=== PATIENT | female | born 1965 | race Caucasian/White ===

== ENCOUNTER 2016-07-07 17:05 | Inpatient (IN) | payer OTHER ==
[~2016-07-07] VITALS: Ht 157.5 cm; Wt 60.4 kg
[~2016-07-07 17:05] MED LIST: ALBU0.08 NEB; IBUP800T23 PO; PERI0.126 SWISH-SPIT; VENTAER INH; ZYRTTAB2 PO
[2016-07-07 17:14] VITALS: BP 130/75; PULSE 104; RESP 16; TEMP 98.2; O2SAT 100
[2016-07-07] MEDS ORDERED: SODIUM CHLORIDE 0.9% FLUSH 10 ML FLUSH IVF PRN (18:00)
[2016-07-07 18:30] LABS: AUTOMATED NEUTROPHIL # 3.7 TH/MM3 (1.8-7.7); BASOPHIL # 0.1 TH/MM3 (0-0.2); BASOPHIL % 1.6 % (0.0-2.0); EOSINOPHIL # 0.7 TH/MM3 (0-0.4); HEMATOCRIT 22.5 % (35.0-46.0); LYMPH % 18.7 % (9.0-44.0); LYMPHOCYTE # 1.1 TH/MM3 (1.0-4.8); MEAN CELL VOLUME 64.4 FL (80.0-100.0); MEAN CORPUSCULAR HEMOGLOBIN 19.9 PG (27.0-34.0); MEAN CORPUSCULAR HGB CONC 30.9 % (32.0-36.0); MONO % 5.9 % (0.0-8.0); NEUT % 61.8 % (16.0-70.0); PLATELET COUNT 254 TH/MM3 (150-450); RED BLOOD COUNT 3.49 MIL/MM3 (4.00-5.30); RED CELL DISTRIBUTION WIDTH 19.4 % (11.6-17.2)
[2016-07-07 18:39] LABS: HEMO FLAGS AUTO DIFF
[2016-07-07 18:40] LABS: POTASSIUM 3.7 MEQ/L (3.5-5.1)
[2016-07-07 18:43] LABS: BICARBONATE 25.5 MEQ/L (21.0-32.0)
[2016-07-07] MEDS ORDERED: SODIUM CHLOR 0.9% 250 ML INJ 250 ML IV ONE (18:45)
--- NOTE | 2016-07-07 18:50 | PD ---
HPI Chief Complaint: General Weakness Time Seen by Provider: 17:47 Travel History International Travel<30 days: No Contact w/Intl Traveler<30days: No Traveled to known affect area: No History of Present Illness HPI Patient's 50 years old. She reports generalized fatigue and weakness. She denies headache and palpitations. She reports nail splitting. The patient reports a history of anemia and has a uterine fibroid. Due to lack of insurance she reports she has been unable to establish follow-up in gynecology and/or primary care. She reports her menstruation just ended. It was heavier than normal. Mild palpation or "bumping" of the abdominal wall tends to cause pain. PFSH Past Medical History Anemia: Yes Arthritis: No Asthma: Yes Autoimmune Disease: No Anxiety: No Depression: No Cancer: No Cardiovascular Problems: No Chemotherapy: No COPD: No Cerebrovascular Accident: No Diminished Hearing: Yes (BILAT HEARING AIDS) Endocrine: No Gastrointestinal Disorders: No Genitourinary: No Headaches: No Immune Disorder: No Implanted Vascular Access Dvce: No Musculoskeletal: Yes ("THIGH/FEMUR AREA ACHES IF I'M SICK") Neurologic: No Psychiatric: No Reproductive: No Respiratory: Yes (ASTHMA) Immunizations Current: Yes Migraines: No Pneumonia: Yes Radiation Therapy: No Seizures: No Shingles: Yes Sleep Apnea: No Tetanus Vaccination: Unknown Influenza Vaccination: Yes ?: Not LMP: 2 DAYS AGO Menopausal: Yes : 0 Para: 0 Miscarriage: 0 : 0 Past Surgical History Abdominal Surgery: No AICD: No Arteriovenous Shunt: No Body Medical Devices: pt states her pins were removed from her femur Cardiac Surgery: No Ear Surgery: No Endocrine Surgery: No Eye Surgery: No Genitourinary Surgery: No Gynecologic Surgery: No Insulin Pump: No Joint Replacement: No Neurologic Surgery: No Oral Surgery: No Pacemaker: No Thoracic Surgery: No Other Surgery: Yes Social History Alcohol Use: Yes (RARELY) Tobacco Use: No Substance Use: No Allergies-Medications (Allergen,Severity, Reaction): Coded Allergies: No Known Allergies (Verified , 07/07/16) Reported Meds & Prescriptions Reported Meds & Active Scripts Active Albuterol Neb (Albuterol Sulfate) 2.5 Mg/3 Ml Neb 2.5 Mg NEB Q4HR NEB PRN Ventolin Hfa 18 GM Inh (Albuterol Sulfate) 90 Mcg/Act Aer 2 Puff INH Q4-6H PRN Reported Zyrtec-D Allergy/Congestion 12 HR (Cetirizine-Pseudoephedrine 12 HR) 5-120 Mg Tab 1 Tab PO DAILY Review of Systems Except as stated in HPI: all other systems reviewed are Neg Physical Exam Narrative GENERAL: 50-year-old female pleasant no acute distress SKIN: Focused skin assessment warm/dry. HEAD: Atraumatic. Normocephalic. EYES: Pupils equal and round. No scleral icterus. No injection or drainage. ENT: No nasal bleeding or discharge. Mucous membranes pink and moist. NECK: Trachea midline. No JVD. CARDIOVASCULAR: Regular rate and rhythm. No murmur appreciated. RESPIRATORY: No accessory muscle use. Clear to auscultation. Breath sounds equal bilaterally. GASTROINTESTINAL: Soft. There is a pelvic mass somewhat firm minimally tender. Patient states this is her fibroid. MUSCULOSKELETAL: No obvious deformities. No clubbing. No cyanosis. No edema. NEUROLOGICAL: Awake and alert. No obvious cranial nerve deficits. Motor grossly within normal limits. Normal speech. PSYCHIATRIC: Appropriate mood and affect; insight and judgment normal. Data Data Last Documented VS Vital Signs Date Time Temp Pulse Resp B/P Pulse Ox O2 Delivery O2 Flow Rate FiO2 07/07/16 17:14 98.2 104 16 130/75 100 Vital signs reviewed Orders Basic Metabolic Panel (Bmp) (07/07/16 17:55) Complete Blood Count With Diff (07/07/16 17:55) Type And Screen (07/07/16 17:55) Iv Access Insert/Monitor (07/07/16 17:55) Sodium Chloride 0.9% Flush (Ns Flush) (07/07/16 18:00) Blood Product Administration .UPON TRANSFUSION (07/07/16 18:45) Sodium Chlor 0.9% 250 Ml Inj (Ns 250 Ml (07/07/16 18:45) Red Blood Cells (Rbc) (07/07/16 18:45) Admit Order (Ed Use Only) (07/07/16 18:54) Labs Laboratory Tests Test 07/07/16 18:20 White Blood Count 6.0 TH/MM3 Red Blood Count 3.49 MIL/MM3 Hemoglobin 7.0 GM/DL Hematocrit 22.5 % Mean Corpuscular Volume 64.4 FL Mean Corpuscular Hemoglobin 19.9 PG Mean Corpuscular Hemoglobin 30.9 % Concent Red Cell Distribution Width 19.4 % Platelet Count 254 TH/MM3 Mean Platelet Volume 7.7 FL Neutrophils (%) (Auto) 61.8 % Lymphocytes (%) (Auto) 18.7 % Monocytes (%) (Auto) 5.9 % Eosinophils (%) (Auto) 12.0 % Basophils (%) (Auto) 1.6 % Neutrophils # (Auto) 3.7 TH/MM3 Lymphocytes # (Auto) 1.1 TH/MM3 Monocytes # (Auto) 0.4 TH/MM3 Eosinophils # (Auto) 0.7 TH/MM3 Basophils # (Auto) 0.1 TH/MM3 CBC Comment AUTO DIFF Differential Comment AUTO DIFF CONFIRMED Platelet Estimate NORMAL Platelet Morphology Comment NORMAL Tear Drop Cells 1+ Ovalocytes 1+ Sodium Level 142 MEQ/L Potassium Level 3.7 MEQ/L Chloride Level 106 MEQ/L Carbon Dioxide Level 25.5 MEQ/L Anion Gap 11 MEQ/L Blood Urea Nitrogen 13 MG/DL Creatinine 0.71 MG/DL Estimat Glomerular Filtration 87 ML/MIN Rate Random Glucose 96 MG/DL Calcium Level 8.3 MG/DL [facility] Medical Decision Making Medical Screen Exam Complete: Yes Emergency Medical Condition: Yes Medical Record Reviewed: Yes Differential Diagnosis Acute anemia, electrolyte imbalance, uterine fibroid Narrative Course 12 x 11 x 8 cm uterine fibroid is present. The patient's hemoglobin is 7. She is symptomatic. She'll be admitted for packed red cell transfusion. Case discussed with Dr. Carty. Diagnosis Primary Impression: Anemia Qualified Code: D64.9 - Anemia, unspecified type Additional Impression: Uterine fibroid Qualified Code: D25.9 - Uterine leiomyoma, unspecified location Admitting Information Admitting Physician Requests: Observation Jose Tatum MD Jul 07, 2016 18:50
[2016-07-07 18:59] LABS: OVALOCYTES 1+ (NORMAL)
[2016-07-07 19:00] LABS: PLATELET ESTIMATE SMEAR NORMAL (NORMAL); PLATELET MORPHOLOGY NORMAL (NORMAL); SCAN/DIFF AUTO DIFF CONFIRMED; TEARDROP RBCS 1+ (NORMAL)
[2016-07-07] MEDS ORDERED: NALOXONE HCL 0.4 MG/ML AMP IV PRN (19:00)
[2016-07-07] MEDS ORDERED: BISACODYL 10 MG SUPP RECTAL PRN (19:00)
[2016-07-07] MEDS ORDERED: SODIUM CHLORIDE 0.9% FLUSH 10 ML FLUSH IV FLUSH PRN (19:00)
[2016-07-07] MEDS: SODIUM CHLORIDE 0.9% FLUSH 10 ML FLUSH IV FLUSH SCH (21:00)
[2016-07-07] MEDS ORDERED: ALUMINUM/MAGNESIUM/SIMETH 30 ML CUP PO PRN (21:15)
[2016-07-07] MEDS ORDERED: RESP: ALBUTEROL 2.5 MG/3 ML NEB (PRN) NEB (21:15)
[2016-07-07] MEDS ORDERED: DOCUSATE SODIUM 100 MG CAP PO PRN (21:15)
[2016-07-07] MEDS ORDERED: ACETAMINOPHEN 325 MG TAB PO PRN (21:15)
[2016-07-07] MEDS ORDERED: CALCIUM CARBONATE 500 MG CHEWABLE TAB CHEW PRN (21:15)
[2016-07-07] MEDS ORDERED: ONDANSETRON HCL 4 MG/2 ML VIAL IV PRN (21:15)
[2016-07-07] MEDS ORDERED: MAGNESIUM HYDROXIDE SUSP 30 ML CUP PO PRN (21:15)
[2016-07-07 21:57] VITALS: BP 100/67; PULSE 92; RESP 20; TEMP 98.3; O2SAT 97
[2016-07-07 22:05] VITALS: BP 117/62; PULSE 90; RESP 20; TEMP 98.5; O2SAT 99
[2016-07-07] MEDS: SODIUM CHLOR 0.9% 1000 ML INJ 1,000 ML IV SCH (22:13)
[2016-07-07 22:20] VITALS: BP 111/75; PULSE 88; RESP 20; O2SAT 98
[2016-07-07 22:35] VITALS: BP 114/69; PULSE 76; RESP 20; TEMP 98; O2SAT 98
[2016-07-07 23:50] VITALS: BP 115/69; PULSE 72; RESP 20; O2SAT 98
[2016-07-08] VITALS (11 sets, daily range): BP systolic 97–121; BP diastolic 56–80; PULSE 75–86; RESP 20; TEMP 97–98.3; O2SAT 96–98
[2016-07-08 06:21] LABS: POTASSIUM 3.3 MEQ/L (3.5-5.1)
[2016-07-08 06:41] LABS: BICARBONATE 22.2 MEQ/L (21.0-32.0)
[2016-07-08 07:09] LABS: CALCIUM-PROTEIN CORRECTED 7.8 MG/DL (8.5-10.1)
[2016-07-08] MEDS ORDERED: POTASSIUM CHLORIDE 20 MEQ CONTROLLED RELEASE TAB PO ONE (07:15)
[2016-07-08] MEDS: SODIUM CHLOR 0.9% 1000 ML INJ 1,000 ML IV SCH (09:00)
[2016-07-08] MEDS: SODIUM CHLORIDE 0.9% FLUSH 10 ML FLUSH IV FLUSH SCH (09:00)
[2016-07-08] MEDS ORDERED: FERR325T PO (09:29)
[2016-07-08] MEDS ORDERED: PERI8.6T PO (09:29)
--- NOTE | 2016-07-08 09:29 | HHI.DCPOC ---
Discharge Care Plan Diagnosis: (1) Uterine fibroid (2) Anemia Your Health Problems Are: Difficulty with ADL Exercise Tolerance Goals to Promote Your Health * To prevent worsening of your condition and complications * To maintain your health at the optimal level Directions to Meet Your Goals Take your medications as prescribed Follow your dietary instruction Follow activity as directed Keep your appointments as scheduled Take your immunizations and boosters as scheduled If your symptoms worsen call your PCP, if no PCP go to Urgent Care Center or Emergency Room Smoking is Dangerous to Your Health. Avoid second hand smoke Call the 24-hour hour crisis hotline for domestic abuse at Roberto Mora MD Jul 08, 2016 09:29
--- NOTE | 2016-07-08 09:38 | HHI.HP ---
[facility] Angely Walker MD Admission Diagnosis Acute Anemia Diagnoses: Chief Complaint: Fatigue and weakness Travel History International Travel<30 Days: No Contact w/Intl Traveler <30 Da: No Traveled to Known Affected Are: No History of Present Illness This is a 50 years old female who presented to the emergency room complaining of generalized fatigue and weakness. She denies fever, headache, chest pain, shortness of breath, dizziness and palpitations. She reports a history of anemia and has a uterine fibroid. EMR review shows she has iron deficiency anemia. Patient takes 5 multivitamins that contain iron. Her PCP has already referred her to gynecology. She reports her menstruation just ended. It was heavier than normal. She received 2 units of packed RBC overnight and hemoglobin improved to 9.2. She feels much better without any complaints at this time. Review of Systems Constitutional: COMPLAINS OF: Fatigue, DENIES: Diaphoretic episodes, Fever, Weight gain, Weight loss, Chills, Dizziness, Change in appetite, Night Sweats Endocrine: DENIES: Heat/cold intolerance, Polydipsia, Polyuria, Polyphagia Eyes: DENIES: Blurred vision, Diplopia, Vision loss, Photosensitivity Ears, nose, mouth, throat: DENIES: Tinnitus, Vertigo, Throat pain, Hoarseness, Epistaxis, Odynophagia Respiratory: DENIES: Cough, Wheezing, Hemoptysis, Sputum production, Shortness of breath Cardiovascular: DENIES: Chest pain, Palpitations, Syncope, Dyspnea on Exertion , PND, Lower Extremity Edema, Orthopnea, Claudication Gastrointestinal: DENIES: Abdominal pain, Black stools, Bloody stools, Constipation, Diarrhea, Nausea, Vomiting, Difficulty Swallowing, Anorexia Genitourinary: DENIES: Urinary frequency, Urinary incontinence, Urgency, Hematuria, Dysuria, Nocturia, Vaginal discharge Integumentary: DENIES: Rash Neurologic: DENIES: Headache, Localized weakness, Seizures, Tremor, Poor Balance Psychiatric: DENIES: Anxiety, Confusion, Depression, Hallucinations, Agitation , Suicidal Ideation, Homicidal Ideation, Delusions Past Family Social History Past Medical History As previously mentioned. LMP a week ago. History of asthma and hard of hearing. Past Surgical History Orthopedic surgery Reported Medications Albuterol Neb (Albuterol Sulfate) 2.5 Mg/3 Ml Neb 2.5 Mg NEB Q4HR NEB PRN Ventolin Hfa 18 GM Inh (Albuterol Sulfate) 90 Mcg/Act Aer 2 Puff INH Q4-6H PRN Zyrtec-D Allergy/Congestion 12 HR (Cetirizine-Pseudoephedrine 12 HR) 5-120 Mg Tab 1 Tab PO DAILY Allergies: Coded Allergies: No Known Allergies (Verified , 07/07/16) Family History PR Social History Occasional alcohol use. She does not smoke or use illicit drugs. She is employed Physical Exam Vital Signs Vital Signs Date Time Temp Pulse Resp B/P Pulse Ox O2 Delivery O2 Flow Rate FiO2 07/08/16 08:30 97.0 83 20 121/80 96 07/08/16 07:11 97.7 07/08/16 07:06 79 16 96 Room Air 07/08/16 06:47 78 20 111/67 98 07/08/16 05:37 80 20 110/70 97 07/08/16 03:48 75 20 111/67 98 07/08/16 03:27 85 20 97/56 98 07/08/16 01:45 98.0 84 20 118/71 98 07/08/16 01:30 80 20 97/64 98 Room Air 07/08/16 01:15 98.3 80 20 106/66 96 07/08/16 01:00 84 20 112/79 96 07/08/16 00:39 86 20 118/73 97 07/07/16 23:50 72 20 115/69 98 07/07/16 23:43 20 98 07/07/16 22:35 98.0 76 20 114/69 98 Room Air 07/07/16 22:20 88 20 111/75 98 07/07/16 22:05 98.5 90 20 117/62 99 07/07/16 21:57 98.3 92 20 100/67 97 07/07/16 17:14 98.2 104 16 130/75 100 Physical Exam GENERAL: This is a well-nourished, well-developed patient, in no apparent distress. SKIN: No rashes, ecchymoses or lesions. Cool and dry. HEAD: Atraumatic. Normocephalic. No temporal or scalp tenderness. EYES: Pupils equal round and reactive. Extraocular motions intact. No scleral icterus. No injection or drainage. ENT: Nose without bleeding, purulent drainage or septal hematoma. Throat without erythema, tonsillar hypertrophy or exudate. Uvula midline. Airway patent. NECK: Trachea midline. No JVD or lymphadenopathy. Supple, nontender, no meningeal signs. CARDIOVASCULAR: Regular rate and rhythm without murmurs, gallops, or rubs. RESPIRATORY: Clear to auscultation. Breath sounds equal bilaterally. No wheezes , rales, or rhonchi. GASTROINTESTINAL: Abdomen soft, non-tender, nondistended. Prominent uterus. No guarding. MUSCULOSKELETAL: Extremities without clubbing, cyanosis, or edema. No joint tenderness, effusion, or edema noted. No calf tenderness. Negative Homans sign bilaterally. NEUROLOGICAL: Awake and alert. Cranial nerves II through XII intact. Motor and sensory grossly within normal limits. Five out of 5 muscle strength in all muscle groups. Normal speech. Laboratory Laboratory Tests Test 07/07/16 07/07/16 07/08/16 07/08/16 18:20 19:25 04:20 05:50 White Blood Count 6.0 Red Blood Count 3.49 Hemoglobin 7.0 7.7 9.2 Hematocrit 22.5 Mean Corpuscular Volume 64.4 Mean Corpuscular Hemoglobin 19.9 Mean Corpuscular Hemoglobin 30.9 Concent Red Cell Distribution Width 19.4 Platelet Count 254 Mean Platelet Volume 7.7 Neutrophils (%) (Auto) 61.8 Lymphocytes (%) (Auto) 18.7 Monocytes (%) (Auto) 5.9 Eosinophils (%) (Auto) 12.0 Basophils (%) (Auto) 1.6 Neutrophils # (Auto) 3.7 Lymphocytes # (Auto) 1.1 Monocytes # (Auto) 0.4 Eosinophils # (Auto) 0.7 Basophils # (Auto) 0.1 CBC Comment AUTO DIFF Differential Comment AUTO DIFF CONFIRMED Platelet Estimate NORMAL Platelet Morphology Comment NORMAL Tear Drop Cells 1+ Ovalocytes 1+ Sodium Level 142 142 Potassium Level 3.7 3.3 Chloride Level 106 110 Carbon Dioxide Level 25.5 22.2 Anion Gap 11 10 Blood Urea Nitrogen 13 11 Creatinine 0.71 0.57 Estimat Glomerular Filtration 87 112 Rate Random Glucose 96 74 Calcium Level 8.3 7.4 Blood Type O POSITIVE Antibody Screen NEGATIVE Crossmatch Leukocyte-Reduced Red Blood Cells Blood Bank Comment Protein Corrected Calcium 7.8 Total Protein 6.3 Result Diagram: 07/08/16 0420 07/08/16 0550 Assessment and Plan Problem List: (1) Anemia ICD Code: D64.9 Status: Acute (2) Uterine fibroid ICD Code: D25.9 Status: Chronic Assessment and Plan This is a 50 years old female who presented to the emergency room complaining of generalized fatigue and weakness with a hemoglobin of 7. She reports a history of anemia and has a uterine fibroid. Her PCP has already referred her to gynecology. She reports her menstruation just ended. It was heavier than normal. She received 2 units of packed RBC overnight and hemoglobin improved to 9.2. She feels much better without any complaints at this time. Symptomatic microcytic anemia hx CIERRA likely from uterine fibroids. Follow-up pending iron studies. Start iron as indicated and follow up with PCP and [employer] Hypokalemia. She received 30 mEq potassium. Follow-up magnesium level and replace accordingly Low risk for DVT Discussed Condition With pt Discharge patient to home Condition on discharge: Improved Regular Diet as tolerated Ad [place] activity, no driving Rx written: Iron and Thalia-Colace Follow-up with primary care physician in 3 days, [employer] Problem Qualifiers (1) Anemia: Qualified Code: D64.9 - Anemia, unspecified type (2) Uterine fibroid: Qualified Code: D25.9 - Uterine leiomyoma, unspecified location Roberto Mora MD Jul 08, 2016 09:38
[2016-07-08 09:47] LABS: RETIC % 1.5 % (0.4-3.0); REVIEW FLAG FINAL
[2016-07-08 10:09] LABS: FERRITIN 4 NG/ML (8-252); TRANSFERRIN IRON PROFILE 312 MG/DL (200-360)
[2016-07-08 10:12] LABS: MAGNESIUM 1.8 MG/DL (1.5-2.5)
[2016-07-08] MEDS ORDERED: FERROUS SULFATE 325 MG (65 MG ELEMENTAL IRON) TAB PO SCH (10:15)
== END 2016-07-08 11:25 | disposition home or self-care (01) | DRG 812 ==
LOC: PHED 17:05 → PHEDA 18:55 → OBSVTOIN 19:03 → PHEDH 22:55 → PH3B 07-08 08:33
PROVIDERS: ADMIT Internal Medicine; ATTEND Internal Medicine
PROC: 30233N1 Transfusion of Nonautologous Red Blood Cells into Peripheral Vein, Percutaneous Approach (ICD-10-PCS; principal; 2016-07-07)
DX: D50.9 Iron deficiency anemia, unspecified (principal); D25.9 Leiomyoma of uterus, unspecified; E87.6 Hypokalemia; J45.909 Unspecified asthma, uncomplicated; H91.90 Unspecified hearing loss, unspecified ear
CPT/HCPCS: 36430; 80048; 82728; 83540; 83550; 83735; 84155; 85018; 85025; 85044; 86850; 86900; 86901; 86920; 99284; J7030; J7050; P9016

== ENCOUNTER 2017-09-01 01:20 | Emergency (ER) | payer OTHER ==
[~2017-09-01] VITALS: Ht 157.5 cm; Wt 63.0 kg
[~2017-09-01 01:20] MED LIST changes: +FERR325T PO; -IBUP800T23 PO; -PERI0.126 SWISH-SPIT; +PERI8.6T PO
[2017-09-01 01:26] VITALS: BP 118/56; PULSE 89; RESP 18; TEMP 97.4; O2SAT 98
[2017-09-01] MEDS ORDERED: CETI1TAB21 PO (01:45)
[2017-09-01] MEDS ORDERED: FERR325T18 PO (01:47)
[2017-09-01] MEDS ORDERED: ACETAMINOPHEN/HYDROcodone 325 MG/5 MG TAB PO ONE (02:00)
--- NOTE | 2017-09-01 02:04 | PD ---
HPI Chief Complaint: Oral / Dental Pain or Problem Time Seen by Provider: 01:46 Travel History International Travel<30 days: No Contact w/Intl Traveler<30days: No Traveled to known affect area: No History of Present Illness HPI 51yo F with PMH of asthma presents to the ED with c/o tooth pain for 3 days. Pain is in left upper tooth and she feels like there is some facial swelling around it. Denies any fever, drooling, inability to eat or drink, chest pain, sob, n/v, abdominal pain, focal weakness or numbness. Pt has appointment with dentist next week. PFSH Past Medical History Anemia: Yes Arthritis: No Asthma: Yes Autoimmune Disease: No Anxiety: No Depression: No Cancer: No Cardiovascular Problems: No Chemotherapy: No COPD: No Cerebrovascular Accident: No Diminished Hearing: Yes (BILAT HEARING AIDS) Endocrine: No Gastrointestinal Disorders: No Genitourinary: Yes (Uterine fibroid ) Headaches: No Immune Disorder: No Implanted Vascular Access Dvce: No Musculoskeletal: Yes Neurologic: No Psychiatric: No Reproductive: No Respiratory: Yes (ASTHMA) Immunizations Current: Yes Migraines: No Pneumonia: Yes Radiation Therapy: No Seizures: No Shingles: Yes Sleep Apnea: No Tetanus Vaccination: Unknown Influenza Vaccination: Yes ?: Unknown LMP: NOW Menopausal: Yes : 0 Para: 0 Miscarriage: 0 : 0 Past Surgical History Abdominal Surgery: No AICD: No Arteriovenous Shunt: No Body Medical Devices: pt states her pins were removed from her femur Cardiac Surgery: No Ear Surgery: No Endocrine Surgery: No Eye Surgery: No Genitourinary Surgery: No Gynecologic Surgery: No Insulin Pump: No Joint Replacement: No Neurologic Surgery: No Oral Surgery: No Pacemaker: No Thoracic Surgery: No Other Surgery: Yes Social History Alcohol Use: Yes (RARELY) Tobacco Use: No Substance Use: No Allergies-Medications (Allergen,Severity, Reaction): Coded Allergies: No Known Allergies (Verified Adverse Reaction, Unknown, 09/01/17) Reported Meds & Prescriptions Reported Meds & Active Scripts Active Albuterol Neb (Albuterol Sulfate) 2.5 Mg/3 Ml Neb 2.5 Mg NEB Q4HR NEB PRN Ventolin Hfa 18 GM Inh (Albuterol Sulfate) 90 Mcg/Act Aer 2 Puff INH Q4-6H PRN Reported Ferrous Sulfate 325 Mg (65 Mg Iron) Tablet 325 Mg PO BIDPC Cetirizine-Pseudoephedrine 12 HR 5-120 Mg Tab 1 Tab PO BID Review of Systems Except as stated in HPI: all other systems reviewed are Neg Physical Exam Narrative GENERAL: 51yo F in mild distress. SKIN: Focused skin assessment warm/dry. HEAD: Atraumatic. Normocephalic. EYES: Pupils equal and round. No scleral icterus. No injection or drainage. ENT: No nasal bleeding or discharge. Mucous membranes pink and moist. NECK: Trachea midline. No JVD. MOUTH: No elevation of tongue. +TTP tooth #16. No periapical fluctuance. Multiple cavities. CARDIOVASCULAR: Regular rate and rhythm. No murmur appreciated. RESPIRATORY: No accessory muscle use. Clear to auscultation. Breath sounds equal bilaterally. GASTROINTESTINAL: Abdomen soft, non-tender, nondistended. MUSCULOSKELETAL: No obvious deformities. No clubbing. No cyanosis. No edema. NEUROLOGICAL: Awake and alert. No obvious cranial nerve deficits. Motor grossly within normal limits. Normal speech. PSYCHIATRIC: Appropriate mood and affect; insight and judgment normal. Data Data Last Documented VS Vital Signs Date Time Temp Pulse Resp B/P (MAP) Pulse Ox O2 Delivery O2 Flow Rate FiO2 09/01/17 01:26 97.4 89 18 118/56 (76) 98 Orders Orders Acetamin-Hydrocod 325-5 Mg ([place] 5-325 (09/01/17 02:00) Ed Discharge Order (09/01/17 02:35) [facility] Medical Decision Making Medical Screen Exam Complete: Yes Emergency Medical Condition: Yes Differential Diagnosis Tooth pain vs. dental caries Narrative Course 51yo F with left upper tooth pain. Denies any fever, drooling. Pt is very well appearing and tolerating PO. Given 1 dose of lortab which helped with pain. Will discharge with Pen V K and ibuprofen. Return precautions given. Diagnosis Primary Impression: Pain, dental Patient Instructions: Narcotic given in the ED, General Instructions Departure Forms: Tests/Procedures Additional Instructions: Please follow up with your dentist at your appointment. Return to the ED if symptoms worsen. Med/Other Pt SpecificInfo: Prescription(s) given Scripts Penicillin V Potassium (Penicillin V Potassium) 250 Mg Tab 250 MG PO Q8H for Infection for 7 Days, #21 TAB 0 Refills Prov: Katelynn Jean Baptiste DO 09/01/17 Ibuprofen (Ibuprofen) 600 Mg Tab 600 MG PO Q8HR Y for PAIN, #20 TAB 0 Refills Prov: Katelynn Jean Baptiste DO 09/01/17 Disposition: 01 DISCHARGE HOME Condition: Stable Katelynn Jean Baptiste DO Sep 01, 2017 02:04
[2017-09-01 02:39] VITALS: BP 108/73
[2017-09-01] MEDS ORDERED: PENI250T PO (02:39)
[2017-09-01] MEDS ORDERED: IBUP-232 PO (02:39)
== END 2017-09-01 02:53 | disposition home or self-care (01) ==
LOC: PHED 01:20
DX: K08.89 Other specified disorders of teeth and supporting structures (principal); J45.909 Unspecified asthma, uncomplicated
CPT/HCPCS: 99283